=== PATIENT | female | born 1970 | race Caucasian/White ===

== ENCOUNTER 2022-05-09 00:24 | Day surgery (SDC) | payer OTHER, SELFPAY ==
[2022-04-27 15:33] VITALS: BMI 34.4
--- NOTE | 2022-04-27 15:34 | SUR.PREOP ---
Report to the Outpatient Waiting Room, entrance under the green pavilion located off [facility], at time 0800 on date __05/09/22 . Planned Procedure Time: _1000 . Time changes happen often and if your time is changed the preop area will call you the afternoon before. - You and your visitor will be asked to self-screen and do not enter if you have any COVID symptoms. - Only one visitor is requested with a max of two and NO children visitors are allowed at this time. - The patient visitor may be requested to leave or wait in car when not with patient due to distancing restrictions. - A mask is optional within the hospital at this time. Patients may have clear liquids (water, carbonated beverages, clear teas, apple juice) until 3 hours prior to surgery with a maximum of 20 ounces. - No food from midnight until time of surgery - Infants may have breast milk until 4 hours before surgery, formula 6 hours prior to surgery. - Children will be allowed to drink immediately following surgery. If applicable, please bring a bottle or sippy cup to assist with drinking. Juice, water, soda, and popsicles are readily available. For infants on formula, please bring formula the day of surgery. Pacifiers are allowed. Take the following medications with a SIP of water the morning of surgery: _fluoxetine,metoprolol DO NOT STOP ANY OF YOUR OTHER PRESCRIPTION MEDICATIONS PRIOR TO SURGERY ?EXCEPT THE FOLLOWING Medications to discontinue per physician ___vitamins Date to take last dose__05/06/22 Please no make-up, nail greek, hairspray, perfume, deodorant, or body powder the day of surgery. No jewelry (including any body piercings) or valuables the day of surgery, leave them at home. Please take a shower or bath the night before, or the morning of, surgery with an antibacterial soap. Wear comfortable, loose fitting clothing. Children are encouraged to wear pajamas. - Jewelry must be removed prior to entering the operating room. Rings and piercings that are not removed may be cut off. - The hospital will not accept responsibility for valuables. - Please leave all valuables, including medications, at home the day of surgery. If you are going home after surgery, a licensed bobtail driver must drive you home. - NO public transportation without another adult if you receive anesthesia. - We recommend that an adult stay with you for 24 hours following discharge. - We also recommend that you do not drive, make important decision, drink alcoholic beverages, or take any drugs that were not prescribed by your health care provider for at least 24 hours after your discharge time. For Pediatric surgeries, we recommend two adults accompany the child home. Follow any additional instructions given to you from your surgeon. If you or anyone in your household have experienced Covid symptoms in the past week, please notify your surgeon or the nurse liaison at the phone number below for possible testing. Telephone instructions given to _david shearer and asked if any additional questions and then verbalized understanding. Patient advised to call surgeon office or pre surgery nurse liaison [phone] if any additional questions.
--- NOTE | 2022-05-09 07:18 | WPDHPUPDATE1 ---
History and Physical Update Update Date/Time: 05/09/22 07:18 History and Physical has been reviewed, including an updated exam of the patient. There are NO changes in the patient's condition. Risks, benefits, and alternatives have been discussed and questions answered. Patient agrees to proceed with procedure.
--- NOTE | 2022-05-09 07:18 | PM.HPGS ---
History of Present Illness History of Present Illness Consent: Risks, benefits, and alternatives have been discussed and questions answered. Patient agrees to proceed with procedure. Chief complaint: extensive sebeceous cyst Narrative: Marylu Flores is a 51 year old female with extensive right labial sebaceous cysts and 3 cysts on the left labia. Options were discussed and the patient has elected to have surgical removal of the large right cluster of sebaceous cysts and incision and drainage of the small left labial cysts. Risks infection, bleeding, and postoperative management are discussed. Patient voices understanding and agrees to proceed. Review of Systems Review of Systems: not repeated day of surgery; patient states no changes in status PMFSH Past Medical History Medical History (Updated 05/09/22 @ 07:24 by Georgia Stahl MD) Anxiety Elevated cholesterol HTN (hypertension) Surgical History Surgical History (Updated 05/09/22 @ 07:23 by Georgia Stahl MD) H/O arthroscopic knee surgery bilateral H/O rectal sphincterotomy history of anal fissures August 2015 repair History of left knee replacement Status post laparoscopic cholecystectomy Social History Social History Smoking status: Never smoker Alcohol intake: current Drinks per week: 1 Living arrangements: alone Spiritual care concerns: No Meds Home Medications and Allergies Home Medications Medication Instructions Recorded Confirmed Type ergocalciferol (vitamin D2) 1,250 50,000 unit PO WEEKLY 04/27/22 04/27/22 History mcg (50,000 unit) capsule fluoxetine 20 mg capsule 20 mg PO DAILY 04/27/22 04/27/22 History irbesartan 75 mg tablet 75 mg PO DAILY 04/27/22 04/27/22 History magnesium 500 mg tablet 15 mg PO DAILY 04/27/22 04/27/22 History metoprolol succinate 25 mg 25 mg PO DAILY 04/27/22 04/27/22 History tablet,extended release 24 hr pantoprazole 40 mg tablet,delayed 40 mg PO DAILY 04/27/22 04/27/22 History release tirzepatide 12.5 mg/0.5 mL 12.5 mg subcut WEEKLY 04/27/22 04/27/22 History subcutaneous pen injector (Sil) vitamin B12 500 mcg-folic acid 400 1 tablet PO DAILY 04/27/22 04/27/22 History mcg tablet Allergies Allergy/AdvReac Type Severity Reaction Status Date / Time sulfamethoxazole Allergy Intermediate Hives Verified 04/27/22 15:08 [From Bactrim] trimethoprim [From Bactrim] Allergy Intermediate Hives Verified 04/27/22 15:08 Exam Const: General: healthy appearing and alert Orientation/consciousness: patient oriented x3 Resp: Effort & Inspection: normal respiratory effort GI: GI Palp: Yes Soft to palpation, No Tenderness to palpation present (GI) and No Palpable mass present : External Female Exam: other ( large cluster of sebaceous cyst on the right labia majora; 3 on left) Speculum Exam - Vagina: normal appearance of the vagina and normal vaginal discharge Speculum Exam - Cervix: normal appearance of the cervix Bimanual exam- vagina & uterus: uterine size normal and consistency normal Bimanual Exam- Adnexa, other: normal adnexae and No adnexal tenderness Neuro: General: patient oriented x3 Assessment and Plan Assessment and plan (1) Sebaceous cyst of labia: Code(s): N90.7 - Vulvar cyst Status: Acute Assessment and Plan: plan excision of the cluster of cysts on the right labia and incision and drainage of the cyst on the left labia
[2022-05-09] MEDS: ACETAMINOPHEN 500 MG TABLET 1000 MG PO (07:50)
[2022-05-09 07:57] VITALS: BP 112/76; PULSE 72; RESP 16; TEMP 36.3; O2SAT 100
[2022-05-09] MEDS: LACTATED RINGERS 1,000 ML 30 ML IV CONT (08:11)
[2022-05-09 08:17] LABS: Glucose Point of Care 82 mg/dl (65-105)
--- NOTE | 2022-05-09 08:41 | WPDANESEPPF ---
Anes - Initial Pre Proc Eval Procedure: Operation Date: 05/09/22 09:45 Proposed Procedures p Excision Sebaceous Cyst Bilateral Labia - Georgia Stahl MD Date/Time: 05/09/22 08:41 Surgeon: Georgia Stahl MD Pre Op Diagnosis: extensive sebeceous cyst Patient Data Age: 51 Gender: F Height: 1.63 m Weight: 90.9 kg Last Vital Signs Temp 97.4 F L 05/09/22 07:57 Pulse 72 05/09/22 07:57 Resp 16 05/09/22 07:57 BP 112/76 05/09/22 07:57 Pulse Ox 100 05/09/22 07:57 O2 Del Method Room Air 05/09/22 07:57 Allergies Allergy/AdvReac Type Severity Reaction Status Date / Time sulfamethoxazole Allergy Intermediate Hives Verified 05/09/22 07:49 [From Bactrim] trimethoprim [From Bactrim] Allergy Intermediate Hives Verified 05/09/22 07:49 Home Medications Medication Instructions Recorded Confirmed Type ergocalciferol (vitamin D2) 1,250 50,000 unit PO WEEKLY 04/27/22 04/27/22 History mcg (50,000 unit) capsule fluoxetine 20 mg capsule 20 mg PO DAILY 04/27/22 04/27/22 History irbesartan 75 mg tablet 75 mg PO DAILY 04/27/22 04/27/22 History magnesium 500 mg tablet 15 mg PO DAILY 04/27/22 04/27/22 History metoprolol succinate 25 mg 25 mg PO DAILY 04/27/22 04/27/22 History tablet,extended release 24 hr pantoprazole 40 mg tablet,delayed 40 mg PO DAILY 04/27/22 04/27/22 History release tirzepatide 12.5 mg/0.5 mL 12.5 mg subcut WEEKLY 04/27/22 04/27/22 History subcutaneous pen injector (Mounjaro) vitamin B12 500 mcg-folic acid 400 1 tablet PO DAILY 04/27/22 04/27/22 History mcg tablet Laboratory Tests 05/09/22 08:14 POC Capillary Glucose 82 mg/dl mg/dl (65-105) Patient hx anesthesia problems: none Family hx anesthesia problems: none Results Review: All pre-operative results and documents have been reviewed as part of the pre-operative evaluation. [facility] Past Medical History Medical History (Updated 05/09/22 @ 07:24 by Georgia Stahl MD) Anxiety Elevated cholesterol HTN (hypertension) Surgical History Surgical History (Updated 05/09/22 @ 07:23 by Georgia Stahl MD) H/O arthroscopic knee surgery bilateral H/O rectal sphincterotomy history of anal fissures August 2015 repair History of left knee replacement Status post laparoscopic cholecystectomy Social History Social History Smoking status: Never smoker Alcohol intake: current Drinks per week: 1 Living arrangements: alone Spiritual care concerns: No Anes - Eval Final PreProcedure Day of Procedure 05/09/22 08:41 Patient weight: obese Heart: regular rate and rhythm Lungs: clear to auscultation Airway: Mallampati scale class II Neurological: alert and oriented Last oral intake: >/= 8 hours ASA classification: III Emergent: no Anesthetic plan: proceed Anesthesia type and monitoring: general GIVS and standard monitoring Results Review: All pre-operative results and documents have been reviewed as part of the pre-operative evaluation. Informed Consent: The patient's anesthetic plan and its attendant risks and benefits were discussed with the patient/family/POA. Questions were solicited and answers provided to the satisfaction of the patient/family/POA.
[2022-05-09] MEDS: LIDO 1%/EPINEPHRINE 1:100,000 20 ML VIAL 10 ML INFILTRATE (09:32)
--- NOTE | 2022-05-09 09:45 | W.PM.PROC2 ---
Procedure Note - Detailed Date of Procedure 05/09/22 Pre-op Diagnosis extensive sebeceous cyst Post-op Diagnosis Same Procedure Performed incision and drainage of 4 sebaceous cysts (3 on the left labia 1 on mons) excision a cluster sebaceous cysts on the right labia Surgeon Georgia Stahl MD Anesthesia MAC and Local Findings midline mons lesion consistent with sebaceous cyst; 3 clustered sebaceous cyst of the left labia; multiple sebaceous cysts of the right labia (>10) Description of Procedure The patient is taken to the operating room and placed under anesthesia in the dorsal lithotomy position. She was prepped and draped in the usual sterile fashion. The mons lesion and labial cysts on the left are injected with 1% lidocaine with epinephrine. The right labia was injected along the planned incision on either side of the cluster of cysts. The 3 left lesions are incised and thick white material consistent with a sebaceous cyst are trained. The mons lesion is incised and drained of a copious amounts of thick white material consistent with sebaceous cyst. Silver nitrate is applied to each of these lesions. The scalpel was then used to perform an elliptical incision around the right cluster of cysts. The incision is approximately 2cm wide by 4cm long. The apex of the incision was grasped with an Allis clamp and the skin is excised using a scalpel. The base raw tissue is inspected and 1 small sebaceous cyst is noted at the apex and 1 small sebaceous cyst is noted on the left side which are incised and drained. The incision was then closed using 4-0 Vicryl in a subcuticular fashion. Good hemostasis is noted. The patient is awakened from anesthesia and taken to recovery in stable condition. Sponge, needle, and instrument counts are correct per the OR staff. Estimated Blood Loss 5 Drains No Packing No Pathology None sent Complications No immediate complications Condition Stable Disposition PACU
[2022-05-09 09:50] VITALS: BP 101/62; PULSE 75; RESP 14; O2SAT 100
[2022-05-09 10:20] VITALS: BP 104/66; PULSE 75; RESP 14
[2022-05-09 10:45] VITALS: BP 113/67; PULSE 60; RESP 14
== END 2022-05-09 10:53 | disposition home or self-care (01) ==
PROVIDERS: Visit Provider Obstetrics & Gynecology Gynecology
PROC: (CPT 11426; principal; 2022-05-09 09:45)
DX: N90.7 Vulvar cyst (principal); I10 Essential (primary) hypertension; E78.00 Pure hypercholesterolemia, unspecified; F41.9 Anxiety disorder, unspecified; Z79.899 Other long term (current) drug therapy; E66.9 Obesity, unspecified; Z68.34 Body mass index [BMI] 34.0-34.9, adult
CPT/HCPCS: 11426; 10061; 82948; A9270; J2250; J2704; J3010; J7120